=== PATIENT | male | born 1970 | race Caucasian/White ===

== ENCOUNTER 2024-12-01 07:18 | Emergency (ER) | payer BC ==
[2024-12-01] MEDS ORDERED: Ciprofloxacin 0.3% Ophth Soln 2.5 ML Bottle ONE (07:30)
== END 2024-12-01 07:48 | disposition home or self-care (01) ==
LOC: LB.ED 07:18
DX: T15.01XA Foreign body in cornea, right eye, initial encounter (principal); H10.31 Unspecified acute conjunctivitis, right eye; F17.200 Nicotine dependence, unspecified, uncomplicated; Z91.048 Other nonmedicinal substance allergy status; X58.XXXA Exposure to other specified factors, initial encounter
CPT/HCPCS: 65220; 99283; 99283-25; A9270-GY